=== PATIENT | male | born 1945 | race Caucasian/White ===

== ENCOUNTER → 2025-02-27 | Day surgery (SDC) | payer OTHER ==
[2025-02-25 09:02] VITALS: BP 132/67
[2025-02-25 09:31] LABS: HEMOGLOBIN 11.1 g/dL (13-16.00); MEAN CELL VOLUME 72.7 fL (80.0-100.00); MEAN CORPUSCULAR HGB CONC 31.7 g/dl (32.0-36.0); PLATELET COUNT 270 K/uL (150-450); RED BLOOD COUNT 4.81 M/uL (4.00-6.00)
[2025-02-25 09:34] LABS: RED CELL DISTRIBUTION WIDTH 19.7 % (11.5-14.5)
[2025-02-25 09:50] LABS: INR 1.03; PARTIAL THROMBOPLASTIN TIME 26.7 SECONDS (22.0-34.0); PROTHROMBIN TIME 11.2 SECONDS (9.0-11.5)
[2025-02-25 10:32] LABS: ALBUMIN 3.7 gm/dL (3.4-5.0); BILIRUBIN TOTAL 0.45 mg/dL (0.3-1.2); CALCIUM 9.3 mg/dL (8.5-10.1); CREATININE SERUM 1.04 mg/dL (0.70-1.30); GFR 68.71; GLOBULINA 3.5 G/DL (2.4-3.5); POTASSIUM 4.31 mEq/L (3.5-5.1); TOTAL PROTEIN 7.2 gm/dL (6.4-8.2)
[~2025-02-27] VITALS: Ht 170.2 cm; Wt 68.0 kg
[~2025-02-27] MED LIST: CLONAZEPAM2 MG/TAB; CRESTOR 10MG; ECOTRIN325 M1; ENALAPRIL MALEA10 MG; KLONOPIN 2MG; LEXAPRO20 MG; LIPITOR 10MG; NEURONTIN600 MG; PEPCID; PROSCAR5 MG; PROTONIX40 MG; SEROQUEL XR150 MG; SPIRONOLACTONE25 MG; TAMS0.4C
== END | disposition home or self-care (01) ==
LOC: ADM 02-25 07:15 → CIR.AMB 06:27
PROVIDERS: ATTEND Internal Medicine
DX: K86.9 Disease of pancreas, unspecified (principal); Z53.09 Procedure and treatment not carried out because of other contraindication

== ENCOUNTER 2025-03-03 06:13 | Day surgery (SDC) | payer OTHER ==
[2025-03-03 15:08] VITALS: BP 160/70; O2SAT 100
== END 2025-03-03 15:55 | disposition home or self-care (01) ==
LOC: CIR.AMB 06:13
PROVIDERS: ATTEND Internal Medicine
DX: K31.89 Other diseases of stomach and duodenum (principal); R93.3 Abnormal findings on diagnostic imaging of other parts of digestive tract; K86.2 Cyst of pancreas